=== PATIENT | female | born 1990 | race Caucasian/White ===

== ENCOUNTER 2022-05-13 00:37 | Emergency (ER) | payer OTHER ==
[~2022-05-13] VITALS: Ht 167.6 cm; Wt 72.6 kg
[2022-05-13 01:02] VITALS: BP 144/78
--- NOTE | 2022-05-13 01:11 | NUR ---
COVID SWAB COLLECTED SENT TO LAB
== END 2022-05-13 02:03 ==
LOC: ER 00:42
DX: R05.9 Cough, unspecified (principal); Z20.822 Contact with and (suspected) exposure to COVID-19
CPT/HCPCS: 99283; 87426; C9803